=== PATIENT | male | born 1970 | race Caucasian/White ===

== ENCOUNTER 2020-08-02 22:47 | Emergency (ER) | payer MEDICAID ==
[~2020-08-02] VITALS: Ht 180.3 cm; Wt 79.4 kg
[2020-08-02 23:00] VITALS: BP 130/90
--- NOTE | 2020-08-02 23:01 | NUR ---
Patient arrived to ER via ambulatory c/o itching all over the body for 1 month. Family member accompanied the patient . New orders received from EDP and carried out. All procedures were explain to the patient . Patient verbalized understanding. Safety and comfort measures taken: bed set in low position, frequent rounds, call light within reach. Will continue monitoring the patient during the sift.
[2020-08-02] MEDS ORDERED: LORATADINE10 M2 PO (23:11)
--- NOTE | 2020-08-02 23:11 | Emergency Room Report ---
History of Present Illness General Chief Complaint: Skin Rash/Abscess Source: Patient Present Illness [facility] This a 49-year-old male with no significant past medical history. He presents with chief complaint of itching. This been ongoing for a month. He said this occurred about a month ago after he had to remove a tenet from housing complex. He has seen Workmen's Comp. He went to urgent care and recent liver enzymes were slightly at normal with slight elevation of AST and ALT. His bilirubin is normal. He has been treated for scabies and is not better. He denies any alcohol or drugs. No meth or cocaine use. COVID-19 Screening Contact w/high risk pt: No Experienced COVID-19 symptoms?: No COVID-19 Testing performed SPEECH LANGUAGE PATHOLOGY ASSISTANT: No COVID-19 Screening: Negative COVID-19 Patient History Past Medical History: see triage record, old chart reviewed Past Surgical History: none Pertinent Family History: none Social History: Denies: smoking Immunizations: other Reviewed Nursing Documentation: PMH: Agreed; PSxH: Agreed Nursing Documentation-PMH Past Medical History: No Stated History Review of Systems Eye: Denies: eye pain, blurred vision ENT: Denies: ear pain, nose congestion, throat swelling Respiratory: Denies: cough, shortness of breath Cardiovascular: Denies: chest pain, palpitations Gastrointestinal: Denies: abdominal pain, diarrhea, nausea, vomiting Musculoskeletal: Denies: back pain, joint pain Skin: Denies: rash Neurological: Denies: headache, numbness Endocrine: Denies: increased thirst, increased urine Hematologic/Lymphatic: Denies: easy bruising All Other Systems: negative except mentioned in HPI Physical Exam Vital Signs Date Time Temp Pulse Resp B/P (MAP) Pulse Ox O2 Delivery O2 Flow Rate FiO2 08/02/20 22:50 98.2 77 18 159/94 (115) 98 Room Air Vitals with high blood pressure Sp02 EP Interpretation: reviewed, normal General Appearance: well appearing, no apparent distress, alert Head: normocephalic, atraumatic Eyes: bilateral eye PERRL, bilateral eye EOMI ENT: hearing grossly normal, normal pharynx Neck: full range of motion, supple, no meningismus Respiratory: chest non-tender, lungs clear, normal breath sounds Cardiovascular #1: regular rate, rhythm, no murmur Gastrointestinal: normal bowel sounds, non tender, no mass, no organomegaly, no bruit, non-distended Musculoskeletal: back normal, normal range of motion, gait/station normal Psychiatric: mood/affect normal Medical Decision Making Diagnostic Impression: Primary Impression: Generalized pruritus ER Course Patient presents with generalized pruritus. Unknown etiology. Patient denies any drug use. His LFTs and bilirubins are normal. Will discharge home with symptomatic treatment. Last Vital Signs Date Time Temp Pulse Resp B/P (MAP) Pulse Ox O2 Delivery O2 Flow Rate FiO2 08/02/20 23:00 97.4 79 17 130/90 98 Room Air Status: unchanged Disposition: HOME, SELF-CARE Condition: Stable Scripts Loratadine (Claritin*) 10 Mg Tablet 10 MG PO DAILY for Allergies, #30 TAB Prov: Piyush Smiley MD 08/02/20 Referrals: NOT CHOSEN IPA/,REFERRING (PCP) Additional Instructions: Follow-up with your doctor in 1 to 2 weeks. You may benefit from a referral to see glaze maker. May take Claritin during the day and Benadryl at night. Return if symptoms worsen. Piyush Smiley MD Aug 02, 2020 23:11
--- NOTE | 2020-08-02 23:18 | NUR ---
Patient was discharge home as EDP ordered. All vital signs were taken within normal range. Patient . All prescriptions and instructions were given to the patient . Patient verbalized understanding. patient left the hospital in stable condition .
== END 2020-08-02 23:21 | disposition home or self-care (01) ==
LOC: EMR 23:05
DX: L29.9 Pruritus, unspecified (principal)
CPT/HCPCS: 99282